=== PATIENT | female | born 1985 | race Caucasian/White ===

== ENCOUNTER 2017-02-22 21:55 | Inpatient (IN) | payer OTHER ==
[~2017-02-22] VITALS: Ht 172.7 cm; Wt 115.2 kg
[2017-02-22 23:10] LABS: BASOPHIL % 0.3 % (0-2); PLATELET COUNT 268 x10^3mcL (130-400); RED CELL DISTRIBUTION WIDTH 14.3 % (11.5-14.5)
[2017-02-22 23:16] LABS: CALCIUM 8.7 mg/dL (8.5-10.1); CARBON DIOXIDE 30.9 mmol/L (21-32); CHLORIDE SERUM 105 mmol/L (98-107); CREATININE SERUM 0.9 mg/dL (0.6-1.0); GFR1 > 60 mL/min; GLUCOSE SERUM 79 mg/dL (74-106); POTASSIUM SERUM 3.7 mmol/L (3.5-5.1); SODIUM SERUM 142 mmol/L (136-145)
[2017-02-22 23:20] LABS: ALBUMIN 3.8 g/dL (3.4-5.0); ALKALINE PHOSPHATASE 57 U/L (46-116); ALT/SGPT 41 U/L (14-59); AST/SGOT 20 U/L (15-37); BILIRUBIN TOTAL 0.6 mg/dL (0.20-1.00); TOTAL PROTEIN, SERUM 7.6 g/dL (6.4-8.2)
[2017-02-23] VITALS (7 sets, daily range): BP systolic 16–147; BP diastolic 79–96
[2017-02-23] MEDS ORDERED: LEVOTHYROXINE0.05 M2 PO (00:57)
[2017-02-23] MEDS ORDERED: HYDROCHLOROTHIA25 MG PO (00:57)
[2017-02-23] MEDS ORDERED: GABAPENTIN300 M4 PO (01:07)
[2017-02-23 01:41] LABS: CHOLESTEROL/HDL RATIO 3.2
[2017-02-23 01:42] LABS: MAGNESIUM 2.2 mg/dL (1.8-2.4); PHOSPHOROUS 3.6 mg/dL (2.5-4.9)
[2017-02-23 01:51] LABS: FREE T4 1.03 ng/dL (0.76-1.46); FREE THYROXINE INDEX 2.7 ug/dL (1.4-4.5); T4(THYROXINE) 8.9 ug/dL (4.7-13.3)
[2017-02-23 01:52] LABS: T3 TOTAL 0.98 ng/mL
[2017-02-23 02:29] LABS: microscopic required? YES; urine erythrocyte 3+ (NEGATIVE)
[2017-02-23 02:37] LABS: AMPHETAMINE QUAL UR NONE DETECTED (NEG <=1000)
[2017-02-23 08:26] LABS: BASOPHIL % 0.4 % (0-2); PLATELET COUNT 256 x10^3mcL (130-400); RED CELL DISTRIBUTION WIDTH 14.4 % (11.5-14.5)
[2017-02-23 08:33] LABS: CALCIUM 8.4 mg/dL (8.5-10.1); CARBON DIOXIDE 28.9 mmol/L (21-32); CHLORIDE SERUM 105 mmol/L (98-107); CREATININE SERUM 0.8 mg/dL (0.6-1.0); GFR1 > 60 mL/min; GLUCOSE SERUM 86 mg/dL (74-106); PHOSPHOROUS 3.5 mg/dL (2.5-4.9); POTASSIUM SERUM 3.8 mmol/L (3.5-5.1); SODIUM SERUM 142 mmol/L (136-145)
[2017-02-24 06:11] VITALS: BP 127/83
[2017-02-24 06:26] LABS: BASOPHIL % 0.4 % (0-2); PLATELET COUNT 238 x10^3mcL (130-400); RED CELL DISTRIBUTION WIDTH 14.3 % (11.5-14.5)
[2017-02-24 06:43] LABS: CALCIUM 8.3 mg/dL (8.5-10.1); CARBON DIOXIDE 29.2 mmol/L (21-32); CHLORIDE SERUM 106 mmol/L (98-107); CREATININE SERUM 0.8 mg/dL (0.6-1.0); GFR1 > 60 mL/min; GLUCOSE SERUM 78 mg/dL (74-106); MAGNESIUM 1.9 mg/dL (1.8-2.4); PHOSPHOROUS 4.4 mg/dL (2.5-4.9); POTASSIUM SERUM 3.8 mmol/L (3.5-5.1); SODIUM SERUM 141 mmol/L (136-145)
[2017-02-24 09:39] VITALS: BP 125/87
[2017-02-24 18:36] VITALS: BP 137/90
[2017-02-24 20:31] VITALS: BP 124/84
[2017-02-24 21:28] VITALS: BP 139/68
[2017-02-25 05:26] VITALS: BP 128/89
[2017-02-25 06:06] LABS: BASOPHIL % 0.3 % (0-2); PLATELET COUNT 231 x10^3mcL (130-400)
[2017-02-25 06:20] LABS: CALCIUM 8.5 mg/dL (8.5-10.1); CARBON DIOXIDE 29.4 mmol/L (21-32); CHLORIDE SERUM 106 mmol/L (98-107); CREATININE SERUM 0.9 mg/dL (0.6-1.0); GFR1 > 60 mL/min; GLUCOSE SERUM 87 mg/dL (74-106); MAGNESIUM 1.9 mg/dL (1.8-2.4); PHOSPHOROUS 4.6 mg/dL (2.5-4.9); POTASSIUM SERUM 3.9 mmol/L (3.5-5.1); SODIUM SERUM 142 mmol/L (136-145)
[2017-02-25 07:57] VITALS: BP 115/79
[2017-02-25] MEDS ORDERED: CYCLOBENZAPRINE5 MG PO (08:49)
[2017-02-25] MEDS ORDERED: CAL80 PO (08:49)
[2017-02-25] MEDS ORDERED: LEXAPRO10 MG PO (08:50)
[2017-02-25 09:35] VITALS: BP 115/79
== END 2017-02-25 13:30 | disposition home or self-care (01) | DRG 347 ==
LOC: ED 21:55 → DU 02-23 01:01 → MU 02-24 06:15
PROVIDERS: Emergency Medicine; Family Medicine; ADMIT Family Medicine
PROC: 7W02X4Z Osteopathic Treatment of Thoracic Region using Indirect Forces (ICD-10-PCS; principal; 2017-02-23)
PROC: 7W01X1Z Osteopathic Treatment of Cervical Region using Fascial Release (ICD-10-PCS; 2017-02-23)
DX: M99.02 Segmental and somatic dysfunction of thoracic region (principal); E66.01 Morbid (severe) obesity due to excess calories; I10 Essential (primary) hypertension; G90.9 Disorder of the autonomic nervous system, unspecified; G43.819 Other migraine, intractable, without status migrainosus; M47.892 Other spondylosis, cervical region; E03.9 Hypothyroidism, unspecified; M99.01 Segmental and somatic dysfunction of cervical region; F41.9 Anxiety disorder, unspecified; E66.9 Obesity, unspecified; R31.9 Hematuria, unspecified; Z53.29 Procedure and treatment not carried out because of patient's decision for other reasons; M26.603 Bilateral temporomandibular joint disorder, unspecified; G89.29 Other chronic pain; Z98.51 Tubal ligation status; Z88.0 Allergy status to penicillin; Z88.8 Allergy status to other drugs, medicaments and biological substances; Z79.899 Other long term (current) drug therapy; Z82.3 Family history of stroke; Z82.49 Family history of ischemic heart disease and other diseases of the circulatory system; Z82.0 Family history of epilepsy and other diseases of the nervous system; Z68.38 Body mass index [BMI] 38.0-38.9, adult
CPT/HCPCS: 80307; 83880; 84439; J1170; J1885; J2405; J3030; J7030; Q0092; Q0162; Q0163

== ENCOUNTER 2017-04-17 22:12 | Inpatient (IN) | payer OTHER ==
[~2017-04-17] VITALS: Ht 175.3 cm; Wt 117.0 kg
[~2017-04-17 22:12] MED LIST: CAL80 PO; CYCLOBENZAPRINE5 MG PO; GABAPENTIN300 M4 PO; HYDROCHLOROTHIA25 MG PO; LEVOTHYROXINE0.05 M2 PO; LEXAPRO10 MG PO
[2017-04-18 01:05] LABS: PLATELET COUNT 260 x10^3mcL (130-400); RED CELL DISTRIBUTION WIDTH 13.8 % (11.5-14.5)
[2017-04-18 01:06] LABS: BASOPHIL % 2.2 % (0-2)
[2017-04-18 01:14] LABS: CALCIUM 8.8 mg/dL (8.5-10.1); CARBON DIOXIDE 27.1 mmol/L (21-32); CHLORIDE SERUM 104 mmol/L (98-107); CREATININE SERUM 0.8 mg/dL (0.6-1.0); GFR1 > 60 mL/min; GLUCOSE SERUM 98 mg/dL (74-106); POTASSIUM SERUM 3.8 mmol/L (3.5-5.1); SODIUM SERUM 142 mmol/L (136-145)
[2017-04-18 01:19] LABS: ALBUMIN 3.7 g/dL (3.4-5.0); ALKALINE PHOSPHATASE 62 U/L (46-116); ALT/SGPT 37 U/L (14-59); AST/SGOT 17 U/L (15-37); BILIRUBIN TOTAL 0.7 mg/dL (0.20-1.00); TOTAL PROTEIN, SERUM 7.5 g/dL (6.4-8.2)
[2017-04-18 01:20] LABS: UA SPECIFIC GRAVITY <=1.005 (1.005-1.035); microscopic required? YES; urine erythrocyte TRACE (NEGATIVE)
[2017-04-18 01:41] LABS: AMPHETAMINE QUAL UR NONE DETECTED (NEG <=1000)
[2017-04-18 02:22] LABS: T3 TOTAL 0.94 ng/mL
[2017-04-18 02:25] LABS: FREE T4 0.94 ng/dL (0.76-1.46); FREE THYROXINE INDEX 2.1 ug/dL (1.4-4.5); T4(THYROXINE) 6.7 ug/dL (4.7-13.3)
[2017-04-18 02:27] LABS: CHOLESTEROL/HDL RATIO 2.7; MAGNESIUM 1.9 mg/dL (1.8-2.4)
[2017-04-18 02:52] VITALS: BP 140/85
[2017-04-18 06:08] VITALS: BP 121/83
[2017-04-18 10:18] VITALS: BP 121/70
[2017-04-18 18:00] VITALS: BP 138/96
[2017-04-18 21:44] VITALS: BP 129/84
[2017-04-19 06:04] LABS: BASOPHIL % 0.3 % (0-2); PLATELET COUNT 228 x10^3mcL (130-400)
[2017-04-19 06:28] VITALS: BP 136/79
[2017-04-19 06:33] LABS: CALCIUM 8.6 mg/dL (8.5-10.1); CARBON DIOXIDE 31.6 mmol/L (21-32); CHLORIDE SERUM 98 mmol/L (98-107); CREATININE SERUM 0.8 mg/dL (0.6-1.0); GFR1 > 60 mL/min; GLUCOSE SERUM 86 mg/dL (74-106); POTASSIUM SERUM 3.9 mmol/L (3.5-5.1); SODIUM SERUM 139 mmol/L (136-145)
[2017-04-19 07:11] LABS: RED CELL DISTRIBUTION WIDTH 14.7 % (11.5-14.5)
[2017-04-19 10:12] VITALS: BP 128/95
[2017-04-19 17:55] VITALS: BP 141/99
[2017-04-19 23:14] VITALS: BP 143/88
[2017-04-20 06:47] LABS: CALCIUM 8.5 mg/dL (8.5-10.1); CARBON DIOXIDE 30.7 mmol/L (21-32); CHLORIDE SERUM 105 mmol/L (98-107); CREATININE SERUM 0.8 mg/dL (0.6-1.0); GFR1 > 60 mL/min; GLUCOSE SERUM 86 mg/dL (74-106); POTASSIUM SERUM 3.9 mmol/L (3.5-5.1); SODIUM SERUM 143 mmol/L (136-145)
[2017-04-20 07:04] VITALS: BP 146/93
[2017-04-20 16:09] VITALS: BP 124/84
[2017-04-20 22:30] VITALS: BP 147/88
[2017-04-21 06:07] LABS: BASOPHIL % 0.2 % (0-2); PLATELET COUNT 257 x10^3mcL (130-400); RED CELL DISTRIBUTION WIDTH 14.2 % (11.5-14.5)
[2017-04-21 06:26] VITALS: BP 135/87
[2017-04-21 06:28] VITALS: BP 135/87
[2017-04-21 06:32] LABS: CALCIUM 8.8 mg/dL (8.5-10.1); CARBON DIOXIDE 29.8 mmol/L (21-32); CHLORIDE SERUM 103 mmol/L (98-107); CREATININE SERUM 0.8 mg/dL (0.6-1.0); GFR1 > 60 mL/min; GLUCOSE SERUM 116 mg/dL (74-106); POTASSIUM SERUM 3.7 mmol/L (3.5-5.1); SODIUM SERUM 142 mmol/L (136-145)
[2017-04-21] MEDS ORDERED: SUMATRIPTA6 MG/0.52 SQ ×2 (08:53→08:54)
[2017-04-21] MEDS ORDERED: AMBIEN5 MG PO (08:54)
[2017-04-21 12:06] VITALS: BP 135/87
== END 2017-04-21 14:38 | disposition home or self-care (01) | DRG 54 ==
LOC: ED 22:12 → DU 04-18 00:39 → MU 04-18 00:39 → DU 04-18 02:40 → MU 04-18 09:53
PROVIDERS: Emergency Medicine; Family Medicine; ADMIT Family Medicine
DX: G44.001 Cluster headache syndrome, unspecified, intractable (principal); G90.8 Other disorders of autonomic nervous system; I10 Essential (primary) hypertension; E03.9 Hypothyroidism, unspecified; F41.9 Anxiety disorder, unspecified; E66.9 Obesity, unspecified; F12.90 Cannabis use, unspecified, uncomplicated; M50.30 Other cervical disc degeneration, unspecified cervical region; Z98.51 Tubal ligation status; Z68.38 Body mass index [BMI] 38.0-38.9, adult; Z88.0 Allergy status to penicillin; Z88.8 Allergy status to other drugs, medicaments and biological substances; Z79.899 Other long term (current) drug therapy; Z82.3 Family history of stroke; Z82.49 Family history of ischemic heart disease and other diseases of the circulatory system; Z82.0 Family history of epilepsy and other diseases of the nervous system; Z72.89 Other problems related to lifestyle
CPT/HCPCS: 83880; 84439; J1100; J1170; J2405; J2800; J3030; J7030; Q0162; Q0163

== ENCOUNTER 2017-05-16 14:02 | Emergency (ER) | payer OTHER ==
[~2017-05-16] VITALS: Ht 172.7 cm; Wt 115.2 kg
[~2017-05-16 14:02] MED LIST changes: +AMBIEN5 MG PO; +SUMATRIPTA6 MG/0.52 SQ
[2017-05-16 14:52] LABS: CALCIUM 8.5 mg/dL (8.5-10.1); CARBON DIOXIDE 26.4 mmol/L (21-32); CHLORIDE SERUM 109 mmol/L (98-107); GFR1 > 60 mL/min; GLUCOSE SERUM 85 mg/dL (74-106); POTASSIUM SERUM 3.8 mmol/L (3.5-5.1); SODIUM SERUM 146 mmol/L (136-145)
[2017-05-16 14:56] LABS: BASOPHIL % 0.5 % (0-2); PLATELET COUNT 259 x10^3mcL (130-400)
[2017-05-16 15:05] LABS: ALBUMIN 3.7 g/dL (3.4-5.0); ALKALINE PHOSPHATASE 58 U/L (46-116); ALT/SGPT 52 U/L (14-59); AST/SGOT 26 U/L (15-37); BILIRUBIN TOTAL 1.08 mg/dL (0.20-1.00); RED CELL DISTRIBUTION WIDTH 14.6 % (11.5-14.5); TOTAL PROTEIN, SERUM 7.2 g/dL (6.4-8.2)
[2017-05-16 15:55] VITALS: BP 129/88
== END 2017-05-16 16:01 | disposition home or self-care (01) ==
LOC: ED 14:02
PROVIDERS: Emergency Medicine
DX: D36.7 Benign neoplasm of other specified sites (principal); F41.9 Anxiety disorder, unspecified; Z79.899 Other long term (current) drug therapy; Z88.0 Allergy status to penicillin; Z88.8 Allergy status to other drugs, medicaments and biological substances
CPT/HCPCS: J1885; J2550; J3010; J7030

== ENCOUNTER 2017-06-01 19:47 | Emergency (ER) | payer OTHER ==
[~2017-06-01] VITALS: Ht 172.7 cm; Wt 114.3 kg
[2017-06-01 22:14] VITALS: BP 140/94
== END 2017-06-01 22:14 | disposition left against medical advice (07) ==
LOC: ED 19:47
DX: Z53.21 Procedure and treatment not carried out due to patient leaving prior to being seen by health care provider (principal)

== ENCOUNTER 2017-10-16 22:19 | Emergency (ER) | payer OTHER ==
[2017-10-16 22:56] VITALS: BP 144/93
== END 2017-10-17 02:12 | disposition left against medical advice (07) ==
LOC: ED 22:19
DX: Z53.21 Procedure and treatment not carried out due to patient leaving prior to being seen by health care provider (principal)

== ENCOUNTER 2017-10-17 14:33 | Emergency (ER) | payer OTHER ==
[~2017-10-17] VITALS: Ht 172.7 cm; Wt 111.1 kg
[2017-10-17 19:07] VITALS: BP 144/95
== END 2017-10-17 19:07 | disposition home or self-care (01) ==
LOC: ED 14:33
DX: G89.29 Other chronic pain (principal); R51 Headache; F41.9 Anxiety disorder, unspecified; I10 Essential (primary) hypertension; Z88.0 Allergy status to penicillin; Z88.8 Allergy status to other drugs, medicaments and biological substances
CPT/HCPCS: J1170; Q0162

== ENCOUNTER 2017-10-23 16:52 | Emergency (ER) | payer OTHER ==
[2017-10-23 20:23] VITALS: BP 148/104
== END 2017-10-23 20:23 | disposition home or self-care (01) ==
LOC: ED 16:52
DX: G89.29 Other chronic pain (principal); R51 Headache; I10 Essential (primary) hypertension; E03.9 Hypothyroidism, unspecified; Z88.0 Allergy status to penicillin; Z88.8 Allergy status to other drugs, medicaments and biological substances
CPT/HCPCS: J1170; Q0162

== ENCOUNTER 2017-12-19 17:22 | Emergency (ER) | payer OTHER ==
[2017-12-19 21:12] VITALS: BP 113/81
== END 2017-12-19 21:22 | disposition home or self-care (01) ==
LOC: ED 17:22
DX: G44.029 Chronic cluster headache, not intractable (principal); R11.0 Nausea; R20.0 Anesthesia of skin; I10 Essential (primary) hypertension; E03.9 Hypothyroidism, unspecified; Z88.0 Allergy status to penicillin; Z88.8 Allergy status to other drugs, medicaments and biological substances
CPT/HCPCS: J1170; J2405; J7030

== ENCOUNTER 2018-01-09 13:04 | Emergency (ER) | payer OTHER ==
[~2018-01-09] VITALS: Ht 172.7 cm; Wt 110.8 kg
[2018-01-09 13:33] VITALS: Ht 172.7 cm; Wt 110.8 kg
[2018-01-09 16:00] VITALS: BP 117/74
== END 2018-01-09 16:00 | disposition home or self-care (01) ==
LOC: ED 13:04
DX: R51 Headache (principal); I10 Essential (primary) hypertension; E03.9 Hypothyroidism, unspecified; Z88.0 Allergy status to penicillin; Z88.8 Allergy status to other drugs, medicaments and biological substances
CPT/HCPCS: J1100; J1200; J1885; J7030

== ENCOUNTER 2018-01-26 16:28 | Emergency (ER) | payer OTHER ==
[~2018-01-26] VITALS: Ht 172.7 cm; Wt 98.4 kg
[2018-01-26 16:39] VITALS: Ht 172.7 cm; Wt 98.4 kg
[2018-01-26 20:08] VITALS: BP 126/76
== END 2018-01-26 20:09 | disposition home or self-care (01) ==
LOC: ED 16:28
DX: R51 Headache (principal)
CPT/HCPCS: J1170; J2270; Q0162

== ENCOUNTER 2018-07-20 13:40 | Emergency (ER) | payer OTHER ==
[~2018-07-20] VITALS: Ht 172.7 cm; Wt 113.9 kg
[2018-07-20 16:04] LABS: BASOPHIL % 0.5 % (0-2); PLATELET COUNT 282 x10^3mcL (130-400)
[2018-07-20 16:06] LABS: RED CELL DISTRIBUTION WIDTH 14.7 % (11.5-14.5)
[2018-07-20 16:14] LABS: CALCIUM 8.9 mg/dL (8.5-10.1); CARBON DIOXIDE 30.8 mmol/L (21-32); CHLORIDE SERUM 103 mmol/L (98-107); CREATININE SERUM 0.8 mg/dL (0.6-1.0); GFR1 > 60 mL/min; GLUCOSE SERUM 70 mg/dL (74-106); POTASSIUM SERUM 3.3 mmol/L (3.5-5.1); SODIUM SERUM 140 mmol/L (136-145)
[2018-07-20 16:18] LABS: ALKALINE PHOSPHATASE 65 U/L (46-116); ALT/SGPT 45 U/L (14-59); AST/SGOT 26 U/L (15-37); BILIRUBIN TOTAL 1.04 mg/dL (0.20-1.00); LIPASE 157 IU/L (73-393); TOTAL PROTEIN, SERUM 8.1 g/dL (6.4-8.2)
[2018-07-20 16:33] LABS: microscopic required? YES; urine erythrocyte 2+ (NEGATIVE)
[2018-07-20 16:40] LABS: FREE T4 1.04 ng/dL (0.76-1.46)
[2018-07-20 18:05] VITALS: BP 144/97
== END 2018-07-20 18:06 | disposition home or self-care (01) ==
LOC: ED 13:40
PROVIDERS: Emergency Medicine
DX: N93.9 Abnormal uterine and vaginal bleeding, unspecified (principal); E87.6 Hypokalemia; E16.2 Hypoglycemia, unspecified; I10 Essential (primary) hypertension; Z98.51 Tubal ligation status; Z88.0 Allergy status to penicillin; Z88.5 Allergy status to narcotic agent
CPT/HCPCS: 36415; 82962; 84439

== ENCOUNTER 2018-09-07 22:28 | Emergency (ER) | payer OTHER ==
[~2018-09-07] VITALS: Ht 172.7 cm; Wt 115.2 kg
[2018-09-07 22:34] VITALS: Ht 172.7 cm; Wt 115.2 kg
[2018-09-07 23:49] LABS: ALBUMIN 3.6 g/dL (3.4-5.0); ALKALINE PHOSPHATASE 59 U/L (46-116); ALT/SGPT 45 U/L (14-59); AST/SGOT 26 U/L (15-37); BILIRUBIN TOTAL 0.9 mg/dL (0.20-1.00); CALCIUM 8.6 mg/dL (8.5-10.1); CARBON DIOXIDE 26.9 mmol/L (21-32); CHLORIDE SERUM 105 mmol/L (98-107); CHOLESTEROL 154 mg/dL (<200); CHOLESTEROL/HDL RATIO 3.2; CREATININE SERUM 0.8 mg/dL (0.6-1.0); GFR1 > 60 mL/min; GLUCOSE SERUM 92 mg/dL (74-106); HDL CHOLESTEROL 48 mg/dL (40-60); POTASSIUM SERUM 3.9 mmol/L (3.5-5.1); SODIUM SERUM 138 mmol/L (136-145); TOTAL PROTEIN, SERUM 6.8 g/dL (6.4-8.2); TRIGLYCERIDES 82 mg/dL (<150)
[2018-09-07 23:59] LABS: BASOPHIL % 0.5 % (0-2); PLATELET COUNT 247 x10^3mcL (130-400); RED CELL DISTRIBUTION WIDTH 14.7 % (11.5-14.5)
[2018-09-08 00:25] LABS: AMPHETAMINE QUAL UR NONE DETECTED (See below)
[2018-09-08 01:24] VITALS: BP 143/90
== END 2018-09-08 01:24 | disposition home or self-care (01) ==
LOC: ED 22:28
PROVIDERS: Emergency Medicine
DX: R07.89 Other chest pain (principal); I10 Essential (primary) hypertension; R11.0 Nausea; R20.2 Paresthesia of skin; F41.9 Anxiety disorder, unspecified; E03.9 Hypothyroidism, unspecified; Z88.0 Allergy status to penicillin; Z88.8 Allergy status to other drugs, medicaments and biological substances; Z98.51 Tubal ligation status
CPT/HCPCS: J1885; Q0092

== ENCOUNTER 2018-10-02 14:13 | Emergency (ER) | payer OTHER ==
[~2018-10-02] VITALS: Ht 172.7 cm; Wt 116.6 kg
[2018-10-02 14:25] VITALS: Ht 172.7 cm; Wt 116.6 kg
[2018-10-02 19:24] VITALS: BP 146/89
== END 2018-10-02 19:24 | disposition home or self-care (01) ==
LOC: ED 14:13
DX: G44.009 Cluster headache syndrome, unspecified, not intractable (principal); R11.2 Nausea with vomiting, unspecified; I10 Essential (primary) hypertension; F41.9 Anxiety disorder, unspecified; Z98.51 Tubal ligation status; E03.9 Hypothyroidism, unspecified; Z88.0 Allergy status to penicillin; Z88.8 Allergy status to other drugs, medicaments and biological substances
CPT/HCPCS: J1885; J2550; J3030

== ENCOUNTER 2018-11-30 21:59 | Emergency (ER) | payer OTHER ==
[~2018-11-30] VITALS: Ht 172.7 cm; Wt 118.8 kg
[2018-11-30 22:05] VITALS: Ht 172.7 cm; Wt 118.8 kg
[2018-12-01 01:34] VITALS: BP 120/66
== END 2018-12-01 01:34 | disposition home or self-care (01) ==
LOC: ED 21:59
DX: R51 Headache (principal); R11.2 Nausea with vomiting, unspecified; I10 Essential (primary) hypertension; E03.9 Hypothyroidism, unspecified; F41.9 Anxiety disorder, unspecified; Z98.51 Tubal ligation status; Z88.0 Allergy status to penicillin; Z88.8 Allergy status to other drugs, medicaments and biological substances
CPT/HCPCS: J1885; J2405; Q0163

== ENCOUNTER 2019-01-05 11:53 | Emergency (ER) | payer OTHER ==
[~2019-01-05] VITALS: Ht 172.7 cm; Wt 113.4 kg
[2019-01-05 12:01] VITALS: BP 116/76; Ht 172.7 cm; Wt 113.4 kg
== END 2019-01-05 15:43 | disposition left against medical advice (07) ==
LOC: ED 11:53
DX: Z53.21 Procedure and treatment not carried out due to patient leaving prior to being seen by health care provider (principal)

== ENCOUNTER 2019-01-19 04:55 | Emergency (ER) | payer OTHER ==
[~2019-01-19] VITALS: Ht 172.7 cm; Wt 106.6 kg
[2019-01-19 05:00] VITALS: Ht 172.7 cm; Wt 106.6 kg
[2019-01-19 05:55] VITALS: BP 136/99
== END 2019-01-19 05:55 | disposition home or self-care (01) ==
LOC: ED 04:55
DX: J06.9 Acute upper respiratory infection, unspecified (principal); I10 Essential (primary) hypertension; F41.9 Anxiety disorder, unspecified; E03.9 Hypothyroidism, unspecified; Z98.51 Tubal ligation status; Z88.0 Allergy status to penicillin; Z88.8 Allergy status to other drugs, medicaments and biological substances
CPT/HCPCS: Q0092

== ENCOUNTER 2019-02-22 20:33 | Emergency (ER) | payer OTHER ==
[~2019-02-22] VITALS: Ht 172.7 cm; Wt 116.1 kg
[2019-02-22 20:37] VITALS: Ht 172.7 cm; Wt 116.1 kg
[2019-02-22 21:14] LABS: BASOPHIL % 0.4 % (0-2); PLATELET COUNT 256 x10^3mcL (130-400); RED CELL DISTRIBUTION WIDTH 14.4 % (11.5-14.5)
[2019-02-22 21:21] LABS: CALCIUM 8.5 mg/dL (8.5-10.1); CARBON DIOXIDE 29.9 mmol/L (21-32); CHLORIDE SERUM 105 mmol/L (98-107); CREATININE SERUM 0.9 mg/dL (0.6-1.0); GFR1 > 60 mL/min; GLUCOSE SERUM 85 mg/dL (74-106); POTASSIUM SERUM 3.9 mmol/L (3.5-5.1); SODIUM SERUM 141 mmol/L (136-145)
[2019-02-22 21:25] LABS: ALBUMIN 3.6 g/dL (3.4-5.0); ALKALINE PHOSPHATASE 58 U/L (46-116); ALT/SGPT 37 U/L (14-59); AST/SGOT 17 U/L (15-37); BILIRUBIN TOTAL 0.73 mg/dL (0.20-1.00); TOTAL PROTEIN, SERUM 7.4 g/dL (6.4-8.2)
[2019-02-22 22:16] VITALS: BP 127/91
== END 2019-02-22 22:16 | disposition home or self-care (01) ==
LOC: ED 20:33
PROVIDERS: Emergency Medicine
DX: I10 Essential (primary) hypertension (principal); R42 Dizziness and giddiness; Z98.51 Tubal ligation status; F41.9 Anxiety disorder, unspecified; E03.9 Hypothyroidism, unspecified; Z88.0 Allergy status to penicillin; Z88.8 Allergy status to other drugs, medicaments and biological substances
CPT/HCPCS: 36415; Q0092

== ENCOUNTER 2019-07-13 09:13 | Emergency (ER) | payer OTHER ==
[~2019-07-13] VITALS: Ht 172.7 cm; Wt 113.4 kg
[2019-07-13 09:20] VITALS: Ht 172.7 cm; Wt 113.4 kg
[2019-07-13 14:01] VITALS: BP 123/77
== END 2019-07-13 14:01 | disposition home or self-care (01) ==
LOC: ED 09:13
DX: R51 Headache (principal); I10 Essential (primary) hypertension; F41.9 Anxiety disorder, unspecified; Z98.51 Tubal ligation status; Z88.0 Allergy status to penicillin; Z88.8 Allergy status to other drugs, medicaments and biological substances
CPT/HCPCS: J1885; J2405; J3010; J7030

== ENCOUNTER 2019-11-12 11:16 | Emergency (ER) | payer OTHER ==
[~2019-11-12] VITALS: Ht 172.7 cm; Wt 115.2 kg
[2019-11-12 11:23] VITALS: Ht 172.7 cm; Wt 115.2 kg
[2019-11-12 15:43] VITALS: BP 136/85
== END 2019-11-12 16:24 | disposition home or self-care (01) ==
LOC: ED 11:16
DX: G44.009 Cluster headache syndrome, unspecified, not intractable (principal); I10 Essential (primary) hypertension; E03.9 Hypothyroidism, unspecified; Z88.0 Allergy status to penicillin; Z88.8 Allergy status to other drugs, medicaments and biological substances; Z98.890 Other specified postprocedural states
CPT/HCPCS: J1885; J2405; J3010